=== PATIENT | male | born 1990 | race Hispanic/Latino ===

== ENCOUNTER 2018-11-13 18:27 | Emergency (ER) | payer SELFPAY ==
[2018-11-13] MEDS ORDERED: KETOROLAC 30 MG/ML INJ ONE (19:16)
--- NOTE | 2018-11-13 20:01 | EDPHYS ---
Physician Documentation [facility] Name: Ad Bear Age: 28 yrs Sex: Male : 1990 Arrival Date: 11/13/2018 Time: 18:32 Bed 13 Private MD: None, None ED Physician Chauncey Alexandre HPI: 11/13 19:45 This 28 yrs old Male presents to ER via Ambulatory with complaints of Flu jr8 Symptoms. 19:45 Patient started with 2 day history of Cough, runny nose, sore throat, head ache, jr8 chills. Severity of symptoms: At their worst the symptoms were moderate in the emergency department the symptoms are unchanged. The patient has not experienced similar symptoms in the past. The patient has not recently seen a physician. Historical: - Allergies: 18:35 No Known Allergies; sg - Home Meds: 18:35 None [Active]; sg - PMHx: 18:35 Anxiety; sg - PSHx: 18:35 L ACL; sg - Immunization history:: Adult Immunizations up to date. - Social history:: Smoking status: Patient/guardian denies using tobacco. - Ebola Screening: : Patient negative for fever greater than or equal to 101.5 degrees Fahrenheit, and additional compatible Ebola Virus Disease symptoms Patient denies exposure to infectious person Patient denies travel to an Ebola-affected area in the 21 days before illness onset No symptoms or risks identified at this time. ROS: 19:45 Eyes: Negative for injury, pain, redness, and discharge, Neck: Negative for injury, jr8 pain, and swelling, Cardiovascular: Negative for chest pain, palpitations, and edema, Abdomen/GI: Negative for abdominal pain, nausea, vomiting, diarrhea, and constipation, Back: Negative for injury and pain, MS/Extremity: Negative for injury and deformity, Skin: Negative for injury, rash, and discoloration, Neuro: Negative for headache, weakness, numbness, tingling, and seizure. 19:45 Constitutional: Positive for body aches, chills, fever. 19:45 ENT: Positive for rhinorrhea, sinus congestion, sore throat. 19:45 Respiratory: Positive for cough, Negative for shortness of breath, sputum production, wheezing. Exam: 19:45 Eyes: Pupils equal round and reactive to light, extra-ocular motions intact. Lids and jr8 lashes normal. Conjunctiva and sclera are non-icteric and not injected. Cornea within normal limits. Periorbital areas with no swelling, redness, or edema. ENT: Nares patent. No nasal discharge, no septal abnormalities noted. Mild swelling to bilateral turbinates. Tympanic membranes are normal and external auditory canals are clear. Oropharynx with no redness, swelling, or masses, exudates, or evidence of obstruction, uvula midline. Mucous membranes moist. Neck: Trachea midline, no thyromegaly or masses palpated, and no cervical lymphadenopathy. Supple, full range of motion without nuchal rigidity, or vertebral point tenderness. No Meningismus. Cardiovascular: Regular rate and rhythm with a normal S1 and S2. No gallops, murmurs, or rubs. Normal PMI, no JVD. No pulse deficits. Respiratory: Lungs have equal breath sounds bilaterally, clear to auscultation and percussion. No rales, rhonchi or wheezes noted. No increased work of breathing, no retractions or nasal flaring. Abdomen/GI: Soft, non-tender, with normal bowel sounds. No distension or tympany. No guarding or rebound. No evidence of tenderness throughout. Back: No spinal tenderness. No costovertebral tenderness. Full range of motion. Skin: Warm, dry with normal turgor. Normal color with no rashes, no lesions, and no evidence of cellulitis. MS/ Extremity: Pulses equal, no cyanosis. Neurovascular intact. Full, normal range of motion. Neuro: Awake and alert, GCS 15, oriented to person, place, time, and situation. Cranial nerves II-XII grossly intact. Motor strength 5/5 in all extremities. Sensory grossly intact. Cerebellar exam normal. Normal gait. Vital Signs: 18:46 BP 154 / 90; Pulse 92; Resp 19 S; Temp 99.2; Pulse Ox 97% on R/A; Weight 115.67 kg; sg Height 5 ft. 11 in. (180.34 cm); Pain 7/10; 19:05 BP 142 / 96; Pulse 110; Resp 20; Temp 99.2; Pulse Ox 98% ; Pain 4/10; rr5 20:00 BP 141 / 75; Pulse 96; Resp 19; Pulse Ox 99% ; rr5 18:46 Body Mass Index 35.56 (115.67 kg, 180.34 cm) sg MDM: 18:45 Patient medically screened. jr8 19:54 Data reviewed: vital signs, nurses notes, lab test result(s), Flu: negative and as a jr8 result, I will discharge patient. Data interpreted: Pulse oximetry: on room air is 98 %. Interpretation: normal. Counseling: I had a detailed discussion with the patient and/or guardian regarding: the historical points, exam findings, and any diagnostic results supporting the discharge/admit diagnosis, lab results, the need for outpatient follow up, a family practitioner, to return to the emergency department if symptoms worsen or persist or if there are any questions or concerns that arise at home. 11/13 19:00 Order name: Flu jr8 11/13 19:49 Order name: Influenza Screen (A ; Complete Time: 19:54 EDMS Administered Medications: 19:10 Drug: TORadol 60 mg Route: IM; Site: right gluteus; rr5 20:10 Follow up: Response: No adverse reaction rr5 Disposition: 11/13/18 19:55 Discharged to Home. Impression: Acute upper respiratory infection, unspecified. - Condition is Stable. - Discharge Instructions: Upper Respiratory Infection, Adult. - Prescriptions for Prednisone 20 mg Oral Tablet - take 1 tablet by ORAL route once daily for 5 days; 5 tablet. Tessalon Perles 100 mg Oral Capsule - take 1 capsule by ORAL route every 8 hours As needed; 15 capsule. Claritin- D 24 Hour 10-240 mg Oral Tablet Sustained Release 24 hr - take 1 tablet by ORAL route once daily As needed; 20 tablet. Guaifenesin AC 10- 100 mg/5 mL Oral Liquid - take 10 milliliter by ORAL route every 4 hours As needed; 240 milliliter. - Medication Reconciliation Form, Thank You Letter, Antibiotic Education, Prescription Opioid Use, Work release form form. - Follow up: Private Physician; When: 5 - 6 days; Reason: Recheck today's complaints, Continuance of care, Re-evaluation by your physician. - Problem is new. - Symptoms have improved. Addendum: 11/16/2018 01:35 Co-signature as Attending Physician, Chauncey Alexander MD. g s Signatures: Dispatcher [employer] EDAZ Brendan Marquez RN RN Isra Villaseñor PA PA 8 Chauncey Alexander MD MD Solomon, Cornel, RN RN rr5 Corrections: (The following items were deleted from the chart) 11/13 20:15 19:55 11/13/2018 19:55 Discharged to Home. Impression: Acute upper respiratory rr5 infection, unspecified. Condition is Stable. Forms are Medication Reconciliation Form, Thank You Letter, Antibiotic Education, Prescription Opioid Use. Follow up: Private Physician; When: 5 - 6 days; Reason: Recheck today's complaints, Continuance of care, Re-evaluation by your physician. Problem is new. Symptoms have improved. jr8
--- NOTE | 2018-11-13 20:01 | ER ---
Nurse's Notes [facility] Name: Ad Bear Age: 28 yrs Sex: Male : 1990 Arrival Date: 11/13/2018 Time: 18:32 Bed 13 Private MD: None, None Diagnosis: Acute upper respiratory infection, unspecified Presentation: 11/13 18:45 Presenting complaint: Patient states: Sore throat and sinus congestion for two days, sg reports chills, unknown of any fever at home, reports having headache and pain in the forehead and cheeks. Transition of care: patient was not received from another setting of care. Onset of symptoms was November 13, 2018. Risk Assessment: Do you want to hurt yourself or someone else? Patient reports no desire to harm self or others. Initial Sepsis Screen: Does the patient meet any 2 criteria? No. Patient's initial sepsis screen is negative. Does the patient have a suspected source of infection? No. Patient's initial sepsis screen is negative. Care prior to arrival: None. 18:45 Method Of Arrival: Ambulatory sg 18:45 Acuity: MICHELLE 4 sg Triage Assessment: 18:49 General: Appears in no apparent distress. uncomfortable, Behavior is calm, cooperative, hj appropriate for age. Pain: Complains of pain in head and cheeks. Historical: - Allergies: 18:35 No Known Allergies; sg - Home Meds: 18:35 None [Active]; sg - PMHx: 18:35 Anxiety; sg - PSHx: 18:35 L ACL; sg - Immunization history:: Adult Immunizations up to date. - Social history:: Smoking status: Patient/guardian denies using tobacco. - Ebola Screening: : Patient negative for fever greater than or equal to 101.5 degrees Fahrenheit, and additional compatible Ebola Virus Disease symptoms Patient denies exposure to infectious person Patient denies travel to an Ebola-affected area in the 21 days before illness onset No symptoms or risks identified at this time. Screenin:49 Abuse screen: Denies threats or abuse. Denies injuries from another. Nutritional hj screening: No deficits noted. Tuberculosis screening: No symptoms or risk factors identified. Fall Risk None identified. Assessment: 18:49 General: Appears in no apparent distress. uncomfortable, Behavior is calm, cooperative, hj appropriate for age. Pain: Complains of pain in head and cheeks. Neuro: Level of Consciousness is awake, alert, obeys commands, Oriented to person, place, time, situation, Appropriate for age. Cardiovascular: Capillary refill < 3 seconds Patient's skin is warm and dry. Respiratory: Airway is patent Respiratory effort is even, unlabored, Respiratory pattern is regular, symmetrical. GI: No signs and/or symptoms were reported involving the gastrointestinal system. : No signs and/or symptoms were reported regarding the genitourinary system. EENT: Reports pain in head, cheeks, throat. Derm: No signs and/or symptoms reported regarding the dermatologic system. Musculoskeletal: No signs and/or symptoms reported regarding the musculoskeletal system. 19:50 Reassessment: Patient appears in no apparent distress at this time. Patient and/or rr5 family updated on plan of care and expected duration. Pain level reassessed. Patient states symptoms have improved. 20:10 Reassessment: Patient appears in no apparent distress at this time. Patient and/or rr5 family updated on plan of care and expected duration. Pain level reassessed. discharge instruction and prescription given and explained without complaints made. Vital Signs: 18:46 BP 154 / 90; Pulse 92; Resp 19 S; Temp 99.2; Pulse Ox 97% on R/A; Weight 115.67 kg; sg Height 5 ft. 11 in. (180.34 cm); Pain 7/10; 19:05 BP 142 / 96; Pulse 110; Resp 20; Temp 99.2; Pulse Ox 98% ; Pain 4/10; rr5 20:00 BP 141 / 75; Pulse 96; Resp 19; Pulse Ox 99% ; rr5 18:46 Body Mass Index 35.56 (115.67 kg, 180.34 cm) ED Course: 18:32 Patient arrived in ED. sb2 18:32 None, None is Private Physician. sb2 18:34 Arm band placed on. EKG completed in triage. Results shown to MD. EKG completed in sg triage. Results shown to MD. 18:40 Isra Villaseñor PA is PHCP. jr8 18:40 Chauncey Alexander MD is Attending Physician. jr8 18:42 Dereck Polk, REJI is Primary Nurse. hj 18:46 Triage completed. sg 18:49 Patient has correct armband on for positive identification. Bed in low position. Call light in reach. Side rails up X 1. 19:21 Flu Sent. rr5 20:10 Patient did not have IV access during this emergency room visit. rr5 21:09 No provider procedures requiring assistance completed. rr5 Administered Medications: 19:10 Drug: TORadol 60 mg Route: IM; Site: right gluteus; rr5 20:10 Follow up: Response: No adverse reaction rr5 Outcome: 19:55 Discharge ordered by . maile 20:10 Discharged to home ambulatory. rr5 20:10 Condition: stable 20:10 Discharge instructions given to patient, Instructed on discharge instructions, follow up and referral plans. medication usage, Demonstrated understanding of instructions, follow-up care, medications, Prescriptions given X 3. 20:15 Patient left the ED. rr5 Signatures: Brendan Marquez RN RN Isra Camara PA PA jr8 Dereck Polk RN RN hj Billeau, Sheri sb2 Cornel Solomon RN RN rr5
== END 2018-11-13 20:15 | disposition home or self-care (01) ==
LOC: ER 18:27
DX: J06.9 Acute upper respiratory infection, unspecified (principal)
CPT/HCPCS: 87804; 96372; 99283